=== PATIENT | male | born 1970 | race Caucasian/White ===

== ENCOUNTER 2018-07-31 14:59 | Emergency (ER) | payer MEDICAID ==
[2018-07-31] MEDS ORDERED: ACETAMINOPHEN 325 MG TAB PO ONE (15:16)
--- NOTE | 2018-07-31 15:18 | Emergency Department Record ---
History of Present Illness - General Chief complaint: Flu Like Symptoms Stated complaint: FEVER,BODY ACHES,SORE THROAT Time Seen by Provider: 07/31/18 15:13 Source: Patient Mode of Arrival: Ambulatory Limitations: No limitations - History of Present Illness Initial comments: The patient is here due to not feeling well for one day. He has had a dry cough , mild ST, mild BOSS, body aches, and fever. The patient did not get a flu shot this year. MD Complaint: Generalized weakness, Lack of energy Onset/Timin -: Days(s) Location: Generalized Associated Symptoms: Fever/chills, Nausea/vomiting - Kody Coma Scale Eye Response: (4) Open spontaneously Motor Response: (6) Obeys commands Verbal Response: (5) Oriented Kody Total: 15 - Related Data Home Medications Medication Instructions Recorded Confirmed Last Taken Fish Oil/Dha/Epa [Fish Oil 1,200 2 each PO DAILY 07/31/18 07/31/18 Unknown mg Fish Oil] Previous Rx's Medication Instructions Recorded Oseltamivir Phosphate [Tamiflu] 75 mg PO BID #10 capsule 07/31/18 Allergies Allergy/AdvReac Type Severity Reaction Status Date / Time Penicillins Allergy Mild rash and Verified 07/31/18 15:17 swelling Travel Screening - Travel/Exposure Within Last 30 Days Have you traveled within the last 30 days?: No - Travel/Exposure Within Last Year Have you traveled outside the [place] in the last year?: No - Additonal Travel Details Have you been exposed to anyone with a communicable illness?: No - Travel Symptoms Symptom Screening: Fever (GT 100.4) Review of Systems Constitutional: Reports: Chills, Fever, Malaise Eyes: Denies: Eye discharge ENT: Reports: Congestion. Denies: Dental pain Respiratory: Reports: Cough. Denies: Dyspnea Cardiovascular: Denies: Arrhythmia Endocrine: Reports: Fatigue Past Medical History - SOCIAL HISTORY Smoking Status: Never smoker Alcohol Use: None Drug Use: None - RESPIRATORY Hx Respiratory Disorders: Yes Hx Pneumonia: Yes - CARDIOVASCULAR Hx Cardio Disorders: Yes Hx Hypertension: Yes - NEURO Hx Neuro Disorders: Yes Hx Headaches: Yes - GI Hx GI Disorders: Yes Hx Crohn's Disease: Yes - Hx Genitourinary Disorders: No - ENDOCRINE Hx Endocrine Disorders: No - MUSCULOSKELETAL Hx Musculoskeletal Disorders: Yes Hx Arthritis: Yes Hx Gout: Yes - PSYCH Hx Psych Problems: Yes Hx Anxiety: Yes Hx Depression: Yes - HEMATOLOGY/ONCOLOGY Hx Hematology/Oncology Disorders: Yes Hx Anemia: Yes (when baby) Family Medical History Any Significant Family History?: No Physical Exam - General General Appearance: Alert, Oriented x3, Cooperative, No acute distress - Head Head exam: Atraumatic, Normocephalic, Normal inspection - Eye Eye exam: Normal appearance, PERRL - ENT Throat exam: Normal inspection. negative: Tonsillar erythema, Tonsillar exudate - Neck Neck exam: Normal inspection, Full ROM. negative: Lymphadenopathy, Meningismus , Tenderness - Respiratory Respiratory exam: Normal lung sounds bilaterally. negative: Respiratory distress - Cardiovascular Cardiovascular Exam: Regular rate, Normal rhythm, Normal heart sounds - GI/Abdominal GI/Abdominal exam: Soft, Normal bowel sounds. negative: Tenderness - Extremities Extremities exam: Normal inspection, Full ROM, Normal capillary refill. negative: Tenderness - Neurological Neurological exam: Alert, Normal gait. negative: Abnormal gait, Motor sensory deficit Course Vital Signs 07/31/18 15:01 Temperature 100.7 F H Pulse Rate 100 H Respiratory 18 Rate Blood Pressure 120/88 Pulse Ox 95 - Reevaluation(s) Reevaluation #1: The patient is doing OK at this time. I did discuss the neg xray and positive Flu with him and the need for Tylenol and Motrin along with Tamiflu. 07/31/18 15:59 Medical Decision Making - Data Complexity MDM Data: Labs Ordered and/or Reviewed (Positive Flu A.), X-Ray Ordered and/or Reviewed - Radiology Data Radiology results: Report reviewed (CXR: Neg) Disposition Disposition: Discharge Clinical Impression: Influenza A Disposition: Home, Self-Care Condition: (2) Stable Instructions: Influenza (ED) Additional Instructions: Please drink plenty of fluids and use Tylenol and Motrin for fever. Take the Tamiflu as directed and see your family doctor in 3 days if not better. Return to the ER for any worsening cough, fever, or trouble breathing. Prescriptions: Oseltamivir Phosphate [Tamiflu] 75 mg PO BID #10 capsule Forms: Patient Portal Access Time of Disposition: 16:01 Quality - Quality Measures Quality Measures: N/A - Blood Pressure Screening View Details: Yes Does Patient Have Any of the Following: No Blood Pressure Classification: Pre-Hypertensive BP Reading Systolic Measurement: 120 Diastolic Measurement: 88 Screening for High Blood Pressure: < Pre-Hypertensive BP, F/U Documented > [ [id number]] Pre-Hypertensive Follow-up Interventions: Referral to alternative/primary care provider.
[2018-07-31 15:38] LABS: INFLUENZA A POSITIVE (NEGATIVE); INFLUENZA B NEGATIVE (NEGATIVE)
--- NOTE | 2018-08-02 08:24 | RADIOLOGY REPORT ---
EXAM: CHEST, TWO VIEWS HISTORY: DRY COUGH. TECHNIQUE: Two views of the chest were obtained. Comparison: Two view chest radiograph 07/22/17. FINDINGS: The cardiac silhouette is within normal size limits, stable from prior. No focal pulmonary consolidation. No pleural effusion or pneumothorax. Scattered thoracic degenerative changes. IMPRESSION: NO ACUTE LUNG FINDINGS. JOB NUMBER: [id number] MTDD
== END 2018-07-31 16:16 | disposition home or self-care (01) ==
LOC: ER 14:59
DX: J10.1 Influenza due to other identified influenza virus with other respiratory manifestations (principal); R53.1 Weakness; R51 Headache; I10 Essential (primary) hypertension
CPT/HCPCS: 71046; 87400; 99283